=== PATIENT | male | born 1970 | race Caucasian/White ===

== ENCOUNTER 2017-12-17 07:00 | Outpatient (CLI) | payer OTHER ==
[2017-12-17] MEDS ORDERED: IOHEXOL 100 ML IV ONE (07:20)
[2017-12-17] MEDS ORDERED: DIATR MEGLU/DIATRIZ SOD 30 ML SOLUTION PO ONE (07:20)
== END 2017-12-17 19:20 | disposition home or self-care (01) ==
LOC: SCT 07:00
PROVIDERS: ATTEND Internal Medicine
DX: C18.9 Malignant neoplasm of colon, unspecified (principal); C64.9 Malignant neoplasm of unspecified kidney, except renal pelvis
CPT/HCPCS: Q9964; Q9967

== ENCOUNTER 2018-01-02 08:24 | Outpatient (CLI) | payer OTHER ==
[2018-01-02] MEDS ORDERED: DIATR MEGLU/DIATRIZ SOD 30 ML SOLUTION PO ONE (08:36)
[2018-01-02] MEDS ORDERED: IOHEXOL 100 ML IV ONE (08:37)
== END 2018-01-02 20:02 | disposition home or self-care (01) ==
LOC: SCT 08:24
PROVIDERS: ATTEND Internal Medicine
DX: C18.9 Malignant neoplasm of colon, unspecified (principal); C64.9 Malignant neoplasm of unspecified kidney, except renal pelvis; M87.851 Other osteonecrosis, right femur; I70.90 Unspecified atherosclerosis; Z93.2 Ileostomy status; Z90.49 Acquired absence of other specified parts of digestive tract
CPT/HCPCS: 74178; Q9964; Q9967